=== PATIENT | female | born 1995 | race Caucasian/White ===

== ENCOUNTER 2021-05-28 21:40 | Emergency (ER) | payer OTHER ==
[2021-05-28] MEDS ORDERED: FLAGYL500 MG PO (23:16)
[2021-05-28] MEDS ORDERED: OMNICEF 300 MG300 MG PO (23:33)
[2021-05-30 20:13] LABS: CHLAMYDIA TRACHOMATIS, NAA Negative (Negative); NEISSERIA GONORRHOEAE, NAA Positive (Negative)
== END 2021-05-28 23:48 | disposition home or self-care (01) ==
LOC: ER1 21:40
PROVIDERS: Physician Assistant
DX: A59.9 Trichomoniasis, unspecified (principal); N39.0 Urinary tract infection, site not specified; F17.210 Nicotine dependence, cigarettes, uncomplicated; Z88.0 Allergy status to penicillin
CPT/HCPCS: 81001; 84703; 87086; 87210; 99283